=== PATIENT | male | born 1955 | race Caucasian/White ===

== ENCOUNTER 2024-11-27 09:52 | Outpatient (CLI) | payer MEDICARE, SELFPAY ==
--- OUTSIDE RECORDS SUMMARY | 2024-11-27 11:24 | XMS_ITS | Clinical Summary ---
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 Full Code Date Activated Date Inactivated Comments 06/08/2022 12:26 PM 06/09/2022 4:18 PM * Full Code Date Activated Date Inactivated Comments 04/17/2020 1:08 PM 04/18/2020 11:33 PM Care Teams Television Producer Relationship Specialty Start Date End Date Buster Hurst MD PCP - General 05/28/13 Jan Williamson MD [address] [place] [address] DR SAMAN[address]GO [address] [address] Surgeon Orthopedic Surgery 06/17/23
--- OUTSIDE RECORDS SUMMARY | 2024-11-27 11:24 | XMS_ITS | Referral Summary ---
Author Organization [facility] Medical Office Building A Address [address] [place] [id number] Care Team Providers Care Line Prep Cook Name Role Phone Buster Hurst MD Primary Care Provider Jan Williamson MD Unavailable [phone] Encounters Date Type Department Care Team Description 10/02/2024 Orders Only [facility] Primary Care at [address] [place] [phone] Buster Hurst MD Bilateral acute serous otitis media, recurrence not specified (Primary Dx) 10/01/2024 Telephone [facility] Medical [facility] Primary Care at [address] [place] [phone] Buster Hurst MD Referral Request 09/13/2024 11:15 AM MANAGER MANAGED BACKUP SERVICES Office Visit [facility] Medical [facility] Primary Care at [address] [phone] Buster Hurst MD Bilateral acute serous otitis media, recurrence not specified (Primary Dx); BMI 26.0-26.9,adult from Last 3 Months Allergies Active Allergy Reactions Criticality Noted Date [...] (11/26/2022): Added automatically from request for surgery [id number] History of 2019 novel coronavirus disease (COVID -19) 07/12/2022 History of bilateral reverse prosthetic total shoulder arthroplasty 07/12/2022 Rotator cuff arthropathy, left 06/08/2022 Rotator cuff arthropathy, right 05/24/2022 Overview (05/24/2022): Added automatically from request for surgery [id number] Biceps tendonitis, right 05/24/2022 Overview (05/24/2022): Added automatically from request for surgery [id number] Derangement of right knee 11/26/2020 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 Will go ahead and complete head CT with and without contrast this to evaluate for any acute concerns which could be causing his persistent headaches. And certainly will follow-up with his new neurosurgeon, Dr. Stroud at [facility] as scheduled in a month Assessment & Plan (10/11/2017 9:09 AM MANAGER MANAGED BACKUP SERVICES): Certainly were going to look into other [...] (04/04/2020): Added automatically from request for surgery [id number] Biceps tendonitis on left 04/04/2020 Overview (04/04/2020): Added automatically from request for surgery [id number] Aftercare following surgery 11/17/2018 06/28/2019 Abscess of bursa of left knee 11/08/2018 06/28/2019 Assessment & Plan (11/09/2018 2:29 PM MANAGER MANAGED BACKUP SERVICES): After initial evaluation, concern for joint involvement [...] 10/02/2018 Assessment & Plan (10/11/2017 9:08 AM MANAGER MANAGED BACKUP SERVICES): Dizziness is more likely due to his [...] 04/13/2018 Assessment & Plan (10/11/2017 9:09 AM MANAGER MANAGED BACKUP SERVICES): Checking into anemia status and will follow [...] as needed or for next wellness visit. Immunizations Immunization Administration Dates Next Due Influenza, Quadrivalent, Pauline l Culture-based MDCK, Antibiotic Free, Intramuscular 06/29/2020 Influenza, Quadrivalent, Hig h Dose, Preservative Free, Intrr 06/09/2022 Influenza, Quadrivalent, Spl it, Preservative Free, Intramuscular 06/17/2021,06/15/2019,05/30/2018 Influenza, Trivalent, Adjuva nted, Intramuscular 06/20/2024 Influenza, Trivalent, IM (MDV) 07/05/2012 Influenza, Unspecified 06/28/2023,06/15/2019 Pfizer SARS-CoV-2 Monovalent Vaccination (12+ Yrs) PURPLE 11/25/2020,11/04/2020 Pneumococcal Conjugate Pcv20 07/12/2022 ZOSTER Recombinant 08/31/2019,07/01/2019 Social History Tobacco Use Types Packs/Day Years Used Date Smoking Tobacco: Former Cigarettes 0.3 19 1 974 - 1992 Passive Smoke Exposure: Past Smokeless [...] on file Legal Sex Male 8:34 AM MANAGER MANAGED BACKUP SERVICES Gender Identity Male 10/31/2020 12:53 PM MANAGER MANAGED BACKUP SERVICES Sexual Orientation Straight 10/31/2020 12 :53 PM MANAGER MANAGED BACKUP SERVICES Last Filed Vital Signs Vital Sign Reading Time Taken Comments Blood Pressure 126/78 09/13/2024 10:57 AM MANAGER MANAGED BACKUP SERVICES Pulse 84 09/13/2024 10:57 AM MANAGER MANAGED BACKUP SERVICES Temperature 36.2 C (97.1 F) 09/13/2024 10:57 AM MANAGER MANAGED BACKUP SERVICES Respiratory Rate 16 09/13/2024 10:57 AM MANAGER MANAGED BACKUP SERVICES Oxygen Saturation 98% 09/13/2024 10:57 AM MANAGER MANAGED BACKUP SERVICES Inhaled Oxygen Concentration - - Weight 76.7 kg (169 lb) 09/13/2024 10:57 AM MANAGER MANAGED BACKUP SERVICES Height 170.2 cm (5' 7 ) 09/13/2024 10:57 AM MANAGER MANAGED BACKUP SERVICES Body Mass Index 26.47 09/13/2024 10:57 AM MANAGER MANAGED BACKUP SERVICES Plan of Treatment Not on file Medical Devices Implanted Type Area Mint Wafer Depositor Device Identifier Shelf Expiration Date Model / Serial / Lot Exactech 320-15-05 Equinoxe Lock Reverse Shoulder Glenosphere Screw Bone - [id number] - [id number] Implanted:Qty: 1 on 04/17/2020 by Jan Williamson MD at [facility] Screw Left: Shoulder Exactech 12/31/2024 320-15-05 / [id number] / Exactech 320-20-34 Equinoxe 4.5mm 34mm Kit Compression Lock Cap Reverse Shoulder - [id number] - [id number] Implanted:Qty: 1 on 04/17/2020 by Jan Williamson MD at [facility] Screw Left: Shoulder Exactech 01/13/2025 320-20-34 / [id number] / Hardware N/A: Neck Component 40mm Glenoid Glenosphere Rvrs Shoulder - [id number] - [id number] Implanted:Qty: 1 on 04/17/2020 by Jan Williamson MD at [facility] Left: Shoulder Exactech 03/03/2030 320-31-40 / [id number] / Exactech 320-35-01 Unassigned Unassigned - [id number] - [id number] Implanted:Qty: 1 on 04/17/2020 by Jan Williamson MD at [facility] Left: Shoulder Exactech 11/12/2029 320-35-01 / [id number] / Exactech 320-20-00 Reverse Torque Define Shoulder Kit Screw - [id number] - [id number] Implanted:Qty: 1 on 04/17/2020 by Jan Williamson MD at [facility] Left: Shoulder Exactech 01/20/2025 320-20-00 / [id number] / Exactech 320-20-26 Equinoxe 4.5mm 26mm Kit Compression Lock Cap Reverse Shoulder - [id number] - [id number] Implanted:Qty: 1 on 04/17/2020 by Jan Williamson MD at [facility] Left: Shoulder Exactech 05/21/2024 320-20-26 / [id number] / Exactech 320-10-00 Equinoxe Reverse Shoulder +0mm Tray Humeral Adapter - [id number] - [id number] Implanted:Qty: 1 on 04/17/2020 by Jan Williamson MD at [facility] Left: Shoulder Exactech 10/23/2029 320-10-00 / [id number] / Stem Humrl 12mm Press Fit Equinoxe Shldr Strl - [id number] - [id number] Implanted:Qty: 1 on 04/17/2020 by Jan Williamson MD at [facility] Left: Shoulder Exactech 01/14/2030 300-09-16 / [id number] / Liner 40mm 0 Humeral Rvrs Constrained Equinoxe Shoulder - [id number] - [id number] Implanted:Qty: 1 on 04/17/2020 by Jan Williamson MD at [facility] Left: Shoulder Exactech 01/21/2025 320-40-00 / [id number] / Exactech Equinoxe Small Reverse Superior Augment Shoulder 10d Plate 320-35-02 - [id number] - [id number] Implanted:Qty: 1 on 06/08/2022 by Jan Williamson MD at [facility] Right: Shoulder Exactech 04/15/2032 320-35-02 / [id number] / Exactech Equinoxe 40mm 24.3mm Small Reverse Shoulder Sphere Glenoid 320-31-40 - [id number] - [id number] Implanted:Qty: 1 on 06/08/2022 by Jan Williamson MD at [facility] Right: Shoulder Exactech 04/13/2032 320-31-40 / [id number] / Exactech Equinoxe 4.5mm 38mm Kit Compression Lock Cap Reverse Shoulder 320-20-38 - [id number] - [id number] Implanted:Qty: 1 on 06/08/2022 by Jan Williamson MD at [facility] Right: Shoulder Exactech 01/19/2027 320-20-38 / [id number] / Exactech Equinoxe 4.5mm 38mm Kit Compression Lock Cap Reverse Shoulder 320-20-38 - [id number] - [id number] Implanted:Qty: 1 on 06/08/2022 by Jan Williamson MD at [facility] Right: Shoulder Exactech 04/14/2027 320-20-38 / [id number] / Exactech Stem 70mm 11mm Humeral Equinoxe Shoulder Sterile 300-30-11 - [id number] - [id number] Implanted:Qty: 1 on 06/08/2022 by Jan Williamson MD at [facility] Right: Shoulder Exactech 03/17/2031 300-30-11 / [id number] / Exactech Equinoxe Reverse Shoulder +0mm Tray Humeral Adapter 320-10-00 - [id number] - [id number] Implanted:Qty: 1 on 06/08/2022 by Jan Williamson MD at [facility] Right: Shoulder Exactech 05/18/2032 320-10-00 / [id number] / Exactech Equinoxe 40mm Small Reverse Shoulder +0mm Liner Humeral 320-40-00 - [id number] - [id number] Implanted:Qty: 1 on 06/08/2022 by Jan Williamson MD at [facility] Right: Shoulder Exactech [id number] 03/17/2027 320-40-00 / [id number] / Exactech Equinoxe Lock Reverse Shoulder Glenosphere Screw Bone 320-15-05 - [id number] - [id number] Implanted:Qty: 1 on 06/08/2022 by Jan Williamson MD at [facility] Right: Shoulder Exactech 04/20/2027 320-15-05 / [id number] / Exactech Reverse Torque Define Shoulder Kit Screw 320-20- - [id number] - [id number] Implanted:Qty: 1 on 06/08/2022 by Jan Williamson MD at [facility] Right: Shoulder Exactech 04/20/2027 320-20- / [id number] / Plates-10/28/2023 Implanted:2023 (Quantity not on file) [...] us Buster Hurst MD LAB BLOOD ORDERABLES [facility] Result DEE PAREDES ([place]) 1 [facility] Department [place] [address] * COLONOSCOPY (01/25/2023 8:03 AM CDT) Anatomical Region Laterality Modality Other Narrative Procedure Note Jarek Paul MD - 01/25/2023 8:03 AM CDT [facility] Patient Name: Clifford Singh Procedure Date: 01/25/2023 8:03 AM Date of : 1955 Admit Type: Outpatient Age: 67 Gender: Male Attending MD: Jarek Paul M.D. Room: [facility] RO[facility] 1 Note Status: Finalized Patient [...] under direct vision. The Pediatric Colonoscope PCF-H190L [id number] was introducedthrough the anus and advanced to [...] 8:03 AM Procedure Code(s): --- Professional --- 13920, Colonoscopy, flexible; with removal of tumor(s), polyp(s), or other lesion(s) by snare technique 99190, 59, Colonoscopy, flexible; with biopsy, single or multiple Diagnosis Code(s): --- Professional --- Z12.11, Encounter for screening for malignant neoplasm of colon K64.8, Other hemorrhoids D12.3, Benign neoplasm of transverse colon (hepatic flexure orsplenic flexure) D12.5, Benign neoplasm of sigmoid colon CPT copyright 2020 [employer]. All rights reserved. The codes documented in this report are preliminary and upon stadium manager reviewmay be revised to meet current compliance requirements. Recognized by the [employer] for promoting quality in endoscopy us Jarek Paul MD ENDOSCOPY PROCEDURES Final Result * Hepatitis C Antibody Reflex Hepatitis C RNA Quantitative PCR (06/07/2017 7:04 AM CDT) Hep C Ab Negative Negative [facility] Blood specimen (specimen) 06/07/2017 7:04 AM CDT 06/07/2017 12:51 PM CDT Buster Hurst MD LAB MICROBIOLOGY - G[place] [id number] [address] Department [place] [address] from Last 3 Months or Most Recently Relevant to Health Maintenance Insurance MEDICARE [facility] CHOICE PLUS MEDICARE [facility] MEDICARE BLUE CROSS MEDICARE SUPPLEMENT Advance Directives For more information, please contact: [phone] Documents on File Type Date Recorded Patient Freight Car Cleaner Delta System Expl anation ADVANCE DIRECTIVE 07/15/2023 6:22 AM Elissa r of Monument Installer-Medical Power of Monument Installer 07/15/2023 5:39 AM * Full Code (Latest [...] 1:08 PM 04/18/2020 11:33 PM Care Teams Line Prep Cook Relationship Specialty Start Date End Date Buster Hurst MD PCP - General 05/28/13 Jan Williamson MD [address] [place] [address] DR SAMAN[address] [address] Surgeon Orthopedic Surgery 06/17/23
--- OUTSIDE RECORDS SUMMARY | 2024-11-27 11:24 | XMS_ITS ---
Author Organization [facility] Address [address] [place] [address] Phone Care Team Providers Care Food Cashier Name Role Phone JASE VIRK, JONO Unavailable [phone] Plan of Treatment Findings Encounter Date Continue current medication COVID SICK V ISIT- ESTABLISHED PATIENT with MARINA TRUONG FAST [employer]OD FRY COOK-C 05/19/2021 Last Documented On 1 3:40PM ; [facility] The options include close observation CO VID SICK VISIT- ESTABLISHED PATIENT with MARINA TRUONG FAST FOOD FRY COOK-C 05/19/2021 Last Documented On 1 3:40PM ; [facility] Assessments Includes: Assessments for all patient encounters Findings Encounter Date COVID-19 infection COVID SICK VISIT- ES TABLISHED PATIENT with MARINA TRUONG FAST FOOD FRY COOK-C 05/19/2021 Last Documented On 1 3:40PM ; [facility] Medical Equipment - Implanted Devices Includes: Current and historical Devices No Medical Equipment Recorded Medications Administered Includes: Administered Medications in patient's chart No Administered Medications Recorded Results Includes: Results from 11/28/2023 through 11/27/2024 No Results Recorded For Specified Dates History of Present Illness History of Present Illness not supported for this document type No History of Present Illness Recorded Social History Description Last Updated No travel 05/19/2021 Last Documented On 1 3:40PM ; [facility] Tobacco non-user 05/19/2021 Last Documented On 1 3:40PM ; [facility] Smoking Status Unknown Medical History Includes: Medical History in patient's chart Description Last Updated Exposure to a contagious disease 021 Last Documented On 1 3:40PM ; [facility] Contact with and (Suspected) exposure to COVID-19 05/19/2021 Last Documented On 1 3:40PM ; [facility] No fall 05/19/2021 Last Documented On 3:40PM ; [facility] Family History Includes: Family History in patient's chart No Family History Recorded Review of Systems Review of Systems not supported for this document type No Review of Systems Recorded Mental Status No Mental Status Recorded Functional Status No Functional Status Recorded Physical Exam Physical Exam not supported for this document type No Physical Exam Recorded Insurance Includes: Active Insurance Policies Plan Name Member ID Group # Subscriber Relationship Effect kurt Dates 1 - MEDICARE PART A CLAIMS/NGS [id number] [facility] - [facility] [id number] [facility] Clinical Notes Includes: Signed Clinical Notes starting from 09/24/2022 No Clinical Notes Recorded
--- OUTSIDE RECORDS SUMMARY | 2024-11-27 11:24 | XMS_ITS | Clinical Summary ---
Author Organization [facility] Address [address] [place] [address] Care Team Providers Care Garage Laborer Name Role Phone Buster Hurst MD Primary Care Provider Source Comments [facility],non-owned Affiliates and Associated Physician Practices is amultiple site organization consisting of ambulatory clinics and hospital sitesin [place], [place] and [place]. This disclosure is being madepursuant to the Care Everywhere program and may not contain all information available regarding this patient. Last updated 18.[facility] Allergies No known active allergies Medications * Be aware that medications may not be up to date on this document. Alwaysverify current medications with the patient. Medication Sig Dispensed Refills Start Date End Date Status atorvastatin (LIPITOR) 40 MG tablet Take 40 mg by mouth at bedtime Active DULoxetine (CYMBALTA) 60 MG capsule Take 60 mg by mouth once daily Active lamoTRIgine (LAMICTAL) 200 MG tablet Take 200 mg by mouth 2 times daily Active escitalopram (LEXAPRO) 20 MG tablet Take 20 mg by mouth once daily Active oxyCODONE-acetamino phen (PERCOCET) 5-325 MG tablet Take 1 tablet by mouth every 4 hours as needed Active vitamin E (TOCOPHERYL) 400 UNIT tablet Take by mouth once daily Active ibuprofen (MOTRIN) 200 MG tablet Take by mouth every 6 hours as needed Active acetaminophen (TYLENOL) 500 MG tablet Take 500 mg by mouth every 4 hours as needed Maximum allowable Acetaminophen amount = 4 Grams (4000 mg) / 24 hours. Active tiZANidine (ZANAFLEX) 2 MG tablet Take 2 mg by mouth every 8 hours as needed Active Active Problems No known active problems Immunizations Name Administration Dates Next Due INFLUENZA VACCINE, QUADR. (F LUZONE; FLULAVAL; FLUARIX; AFLURIA QUADRIVALENT; 6MO+), 0.5 ML (IIV4) 05/31/2018 Family History Medical History Relation Name Comments Hypertension Father Depression Mother Relation Name Status Comments Father Mother Social History Tobacco Use Types Packs/Day Years Used Date Smoking Tobacco: Former Cigarettes Smokeless Tobacco: Never Tobacco Cessation:Counseling Given: No Alcohol Use Standard Drinks/Week Comments Yes 10 (1 standard drink = 0.6 oz pu re alcohol) WEEK Sex and Gender Information Value Date Recorded Sex Assigned at Not on file Gender Identity Not on file Sexual Orientation Not on file Last Filed Vital Signs Vital Sign Reading Time Taken Comments Blood Pressure 113/73 10/16/2018 8:55 AM DIESEL DINKEY ENGINEER Pulse 70 10/16/2018 8:55 AM DIESEL DINKEY ENGINEER Temperature - - Respiratory Rate - - Oxygen Saturation - - Inhaled Oxygen Concentration - - Weight 72.6 kg (160 lb) 10/16/2018 8:55 AM DIESEL DINKEY ENGINEER Height 171.5 cm (5' 7.5 ) 10/16/2018 8:55 AM DIESEL DINKEY ENGINEER Body Mass Index 24.69 10/16/2018 8:55 AM DIESEL DINKEY ENGINEER Plan of Treatment Health Maintenance Due Date Last Done Comments COLOGUARD (AGES 45-75) - COLON CA SCREENING [address] COLONOGRAPHY - COLON CA SCREENING 1955 FIT - COLON CA SCREENING 1955 FLEX SIG - COLON CA SCREENING 1955 HEPATITIS C SCREENING 05/21/1975 DTAP/TDAP/TD VACCINES (1 - Tdap) 1976 PNEUMOCOCCAL VACCINE 50+ (1 of 1 - PCV) 2007 ZOSTER VACCINE (1 of 2) 2007 AAA SCREENING 2022 COVID-19 VACCINE (3 - 2023- season) 2024 11/25/2020, 11/04/2020 INFLUENZA VACCINE (#1) 2024 , 06/29/2020, 06/15/2019, Additional history exists DEPRESSION SCREENING 09/05/2024 Respiratory Syncytial Virus (RSV) Vaccine Pt: or over 60 yrs (1 - 1-dose 75+ series) 2032 COLONOSCOPY - COLON CA SCREENING 01/25/2033 01/25/2023 Colorectal Cancer Screening 01/25/2033 HEPATITIS B VACCINE Aged Out No longe r eligible based on patient's age to complete this topic HIB VACCINE Aged Out No longer eligi ble based on patient's age to complete this topic HPV VACCINE Aged Out No longer eligi ble based on patient's age to complete this topic MENINGOCOCCAL (Group B) VACCINE SHARED DECISION-MAKING Aged Out No longer eligible based on patient's age to complete this topic MENINGOCOCCAL GROUPS A/C/Y/W VACCINE Aged Out No longer eligible based on patient's age to complete this topic Care Teams Garage Laborer Relationship Specialty Start Date End Date Buster Hurst MD [address] [facility] [address] [place] [phone] PCP - General Internal Medicine 03/30/18
--- OUTSIDE RECORDS SUMMARY | 2024-11-27 11:24 | XMS_ITS | Clinical Summary ---
Author Organization [facility] Address [address] [place] [address] Phone Care Team Providers Care Picker Packer Name Role Phone Buster Hurst MD Primary Care Provider [phone] Allergies Active Allergy Reactions Criticality Noted Date Comments Cyclobenzaprine Confusion High 03/10/2023 manic Medications atorvastatin (LIPITOR) 40 mg tablet Take 1 Tablet by mouth daily at bedtime. 12/13/2022 Active mirtazapine (REMERON) 15 mg tablet Take 1 Tablet (15 mg) by mouth daily at bedtime. 30 Tablet 1 03/23/2023 12:46 PM CDT 03/23/2023 Active escitalopram oxalate (LEXAPRO) 20 mg tablet Take 20 mg by mouth daily. 04/05/2023 Active doxycycline monohydrate 100 mg Tablet Take 100 mg by mouth daily. 04/05/2023 Active Cholecalciferol, Vitamin D3, 50 mcg (2,000 unit) Capsule Take 2,000 Int'l Units by mouth daily. Active acetaminophen (TYLENOL) 500 mg tablet Take 500 mg by mouth. 11/19/2023 Active ibuprofen (MOTRIN) 200 mg tablet Take 200 mg by mouth every 6 hours as needed for Pain, Mild. Active Active Problems Problem Noted Date Diagnosed Date Hypoalbuminemia 09/23/2023 Hypoproteinemia 09/23/2023 Essential hypertension 09/23/2023 Anemia of chronic disease 09/23/2023 Generalized anxiety disorder 09/23/2023 Depression 09/23/2023 Primary insomnia 09/23/2023 Acute pain 09/22/2023 Pseudarthrosis after fusion or arthrodesis 09/20 Postoperative infection 03/22/2023 Delirium due to another medi doug condition, acute, hyperactive 03/12/2023 Acute respiratory failure with hypoxia Closed dislocation of fourth cervical vertebra 0 03/08/2023 Protein-calorie malnutrition, severe 03/07/2023 Acute metabolic encephalopathy 03/07/2023 FLEX (acute kidney injury) 03/05/2023 High anion gap metabolic acidosis 03/05/2023 Non-traumatic rhabdomyolysis 03/05/2023 Tia 03/03/2023 Recurrent major depressive disorder, in remissio n 03/03/2023 Leukocytosis (leucocytosis) 03/03/2023 Thrombocytosis 03/03/2023 HLD (hyperlipidemia) 03/03/2023 Anxiety 02/19/2023 Benign prostatic hyperplasia 02/19/2023 Kyphosis of cervical region 02/14/2023 S/P cervical spinal fusion 02/14/2023 Complications due to interna l orthopedic device, implant, and graft 02/14/2023 Encounters Date Type Department Care Team Description 11/12/2024 10:50 AM CDT Ancillary Procedure [facility] [address] [facility] [address] [place] [address] Orlin Wen MD S/P cervical spinal fusion 11/12/2024 10:45 AM CDT Office Visit [facility] Neuro[facility] [address] [facility] [address] [facility] [address] [place] [address] Orlin Wen MD S/P cervical spinal fusion (Primary Dx) 10/24/2024 External Device Data ST[facility] ABSTRACTION Provider, Abstract 09/27/2024 External Device Data STL ABSTRACTION Provider, Abstract from Last 3 Months Family History Medical History Relation Name Comments Hypertension Brother Stroke Father Relation Name Status Comments Brother Alive Father Mother Sister 1 Alive Sister 2 Alive Social History Tobacco Use Types Packs/Day Years Used Date Smoking Tobacco: Former Cigarettes Q uit: 1983 Smokeless Tobacco: Never Tobacco Cessation:Counseling Given: Not Answered Alcohol Use Standard Drinks/Week Comments Yes 0 (1 standard drink = 0.6 oz pur e alcohol) ocassionally Feeling Safe Answer Date Recorded Are you in a relationship wi th someone who hurts you emotionally and/or physically? No 09/21/2023 Food Insecurity Answer Date Recorded Social/Environmental Concerns No concerns Transportation Needs Answer Date Record ed Social/Environmental Concerns No concerns Housing Stability Answer Date Recorded Social/Environmental Concerns No concerns Utility Needs Answer Date Recorded Social/Environmental Concerns No concerns Sex and Gender Information Value Date Recorded Sex Assigned at Not on file Legal Sex Male 3:03 PM CDT Gender Identity Not on file Sexual Orientation Not on file Last Filed Vital Signs Vital Sign Reading Time Taken Comments Blood Pressure 125/78 11/12/2024 10:41 AM CDT Pulse 64 11/12/2024 10:41 AM CDT Temperature 36.6 C (97.9 F) 11/12/2024 10:41 AM CDT Respiratory Rate 16 11/12/2024 10:41 AM CDT Oxygen Saturation 96% 11/12/2024 10:41 AM CDT Inhaled Oxygen Concentration - - Weight 75.3 kg (166 lb) 11/12/2024 10:41 AM CDT Height 168.9 cm (5' 6.5 ) 11/12/2024 10:41 AM CD T Body Mass Index 26.39 11/12/2024 10:41 AM CDT Plan of Treatment Upcoming Encounters Date Type Department Care Team (Late st Contact Info) Description 11/11/2025 11:00 AM CDT Office Visit [facility] [address] [facility] [facility] [address] [place] [phone] Orlin Wen MD [address] [address] Health Maintenance Due Date Last Done Comments DTAP/TDAP/TD VACCINES (1 - Tdap) 1976 FIT-DNA Q 3 years 2002 FIT/FOBT Q 1 year 2002 Flex Sig/CT Colonography Q 5 years 2002 Abdominal Aortic Aneurysm (A AA) Screening 2022 COVID-19 Vaccine (3 - 2023-2 5 season) 2024 11/25/2020, 11/04/2020 Pre-Diabetes and Diabetes Screening 09/22/2026 09/22/2023 RSV VACCINE (60+ or ) (1 - 1-dose 75+ series) 2032 COLORECTAL SCREENING 01/25/2033 01/25/2023, 01/26/20 Colorectal Cancer Screening 01/25/2033 ZOSTER VACCINE Completed 08/31/2019, 07/01/2019 PNEUMOCOCCAL VACCINE 50+ YEARS Completed 07/12/2022 INFLUENZA VACCINE Completed 06/20/2024, , 06/08/2022, Additional history exists Medical Devices Implanted Type Area Research Agricultural Engineer Device Identifier Shelf Expiration Date Model / Serial / Lot Infuse Protein Kit Med [id number] - [id number] Implanted:Qty: 1 on 09/21/2023 by Orlin Wen MD at [facility] Biological N/A: Spine Cervical Posterior [employer] SO[employer]OR [employer]ANEK 01/03/2025 [id number] / / [id number] Hemostatic Surgiflo 8ml W/ Thrombin 2994 - [id number] Implanted:Qty: 1 on 02/17/2023 by Orlin Wen MD at [facility] Hemostatic N/A: Neck J&J- [employer] 01/03/2024 2994 / / [id number] Hemostatic Surgiflo 8ml W/ Thrombin 2994 - [id number] Implanted:Qty: 1 on 02/17/2023 by Orlin Wen MD at [facility] Hemostatic N/A: Neck J&J- [employer] 05/05/2024 2994 / / [id number] Hemostatic Surgiflo 8ml W/ Thrombin 2994 - [id number] Implanted:Qty: 1 on 02/17/2023 by Orlin Wen MD at [facility] Hemostatic N/A: Neck J&J- [employer] 01/03/2024 2994 / / [id number] Hemostatic Surgiflo 8ml W/ Thrombin 2994 - Sna Implanted:Qty: 1 on 03/10/2023 by Orlin Wen MD at [facility] Hemostatic N/A: Spine Cervical Posterior J[employer]J- [employer] 05/05/2024 2994 / NA / [id number] Mirragen Adv Wound Matrix Mesh 2.5in 15cm Msg-[id number] - [id number] Implanted:Qty: 1 on 09/21/2023 by Orlin Wen MD at [facility] Mesh N/A: Spine Cervical Posterior [employer] 06/28/2027 [id number] / / [id number] Keegan Implanted:Qty: 1 on 09/21/2023 by Orlin Wen MD at [facility] Other N/A: Spine Cervical Posterior [employer] [id number] / / [id number] Description:1X ADD JM Screw Screw Neck Screw Infinity 4.5x32mm Mas [id number] - [id number] Implanted:Qty: 1 on 02/17/2023 by Orlin Wen MD at [facility] Screw N/A: Neck [employer]ANEK [id number] / / Description:Load #: [id number] Sterilized: February 15, 2023 Screw Infinity 3.5x22mm Mas [id number] - [id number] Implanted:Qty: 1 on 02/17/2023 by Orlin Wen MD at [facility] Screw N/A: Neck [employer]ANEK [id number] / / Description:Load #: [id number] Sterilized: January 31, 2023 Screw Infinity 4.5x24mm Mas [id number] - [id number] Implanted:Qty: 1 on 02/17/2023 by Orlin Wen MD at [facility] Screw N/A: Neck [employer] [id number] / / Description:Load #: [id number] Sterilized: February 15, 2023 Screw Infinity 3.5x24mm Mas [id number] - [id number] Implanted:Qty: 2 on 02/17/2023 by Orlin Wen MD at [facility] Screw N/A: Neck [employer]ANEK [id number] / / Description:Load #: [id number] Sterilized: January 31, 2023 Set Screw Infinity Oc M6 [id number] - [id number] Implanted:Qty: 10 on 09/21/2023 by Orlin Wen MD at [facility] Screw N/A: Spine Cervical Posterior [employer] SOF[employer]ANEK [id number] / / Description:[place] [address]/50 3 Sterilization Date Bone Chips Canc 30ml [id number] - [id number] Implanted:Qty: 1 on 09/21/2023 by Orlin Wen MD at [facility] Tissue N/A: Spine Cervical Posterior [employer] 03/17/2028 [id number] / [id number] / Description:[id number] Reverse Replacement Bilateral: Shoulder Description:titanium Explanted Type Area Research Agricultural Engineer Device Identifier Shelf Expiration Date Model / Serial / Lot Keegan Infinity 3.5x50mm Pre-Cut [id number] - [id number] Implanted:Qty : 2 on 02/17/2023 by Orlin Wen MD at [facility] Explanted:Qty : 2 on 03/10/2023 by Orlin Wen MD at [facility] Keegan N/A: Neck [employer] SOFAMOR DANEK [id number] / / Description:Load #: [id number] Sterilized: January 29, 2023 Keegan Std 3.4q915tv [id number] - Sna Implanted:Qty : 2 on 03/10/2023 by Orlin Wen MD at [facility] Explanted:Qty : 2 on 09/21/2023 by Orlin Wen MD at [facility] Keegan N/A: Spine Cervical Posterior [employer] SOFAMOR DANEK [id number] / NA / NA Description:load # [id number] sterilization date - march 02, 2023 Set Screw Infinity Oc M6 [id number] - [id number] Implanted:Qty : 5 on 02/17/2023 by Orlin Wen MD at [facility] Explanted:Qty : 5 on 03/10/2023 by Orlin Wen MD at [facility] Screw N/A: Neck [employer] SOFAMOR DANEK [id number] / / Description:Load #: [id number] Sterilized: January 31, 2023 Screw Infinity 3.5x26mm Ma [id number] - [id number] Implanted:Qty : 3 on 02/17/2023 by Orlin Wen MD at [facility] Explanted:Qty : 2 on 03/10/2023 by Orlin Wen MD at [facility] Explanted:Qty : 1 on 03/10/2023 by Orlin Wen MD at [facility] Screw N/A: Neck [employer] SOF[employer]OR [employer]ANEK [id number] / / Description:Load #: [id number] Sterilized: January 31, 2023 Partial Thread Mas 4 X 30 Mm Screw Implanted:Qty : 1 on 02/17/2023 by Orlin Wen MD at [facility] Explanted:Qty : 1 on 09/21/2023 by Orlin Wen MD at [facility] Screw N/A: Neck [employer] SOFAMOR [employer]ANEK [id number] / / Description:1X ADD LG Set Screw Infinity Oc M6 [id number] - Sna Implanted:Qty : 14 on 03/10/2023 by Orlin Wen MD at [facility] Explanted:Qty : 14 on 09/21/2023 by Orlin Wen MD at [facility] Screw N/A: Spine Cervical Posterior [employer] SOFAMOR [employer]ANEK [id number] / NA / NA Description:load # [id number] sterilization date - march 02, 2023 Screw Infinity 4.5x34mm Mas [id number] - [id number] Implanted:Qty : 2 on 02/17/2023 by Orlin Wen MD at [facility] Explanted:Qty : 2 on 09/21/2023 by Orlin Wen MD at [facility] Screw N/A: Neck [employer] SOFAMOR [employer]ANEK [id number] / / Description:Load #: [id number] Sterilized: February 15, 2023 Screw Infinity 4.5x30mm Mas [id number] - [id number] Implanted:Qty : 5 on 02/17/2023 by Orlin Wen MD at [facility] Explanted:Qty : 5 on 09/21/2023 by Orlin Wen MD at [facility] Screw N/A: Neck [employer] SOF[employer]ANEK [id number] / / Description:Load #: [id number] Sterilized: February 15, 2023 Procedures Procedure Name Priority Date/Time Associated Diagnosis Comments XR CERVICAL SPINE 2 OR 3 VIEWS Routine 11/12/2024 10:58 AM CDT S/P cervical spinal fusion HEMOGLOBIN A1C Routine 09/22/2023 3:11 AM MOBILE HOME SET UP PERSON from Last 3 Months or Most Recently Relevant to Health Maintenance Results * XR CERVICAL SPINE 2 OR 3 VIEWS (11/12/2024 10:58 AM CDT) Anatomical Region Laterality Modality Spine Computed Radiogr aphy Narrative 11/20/2024 5:46 PM CDT AP/LAT Cervical radiographs of diagnostic quality reviewed demonstrating continued stable implants and alignment without evidence of loosening, migration, or subsidence. There has been no development of intercurrent craniocervical instability. There are no abnormal lucencies or densities observed in the visualized vertebrae, clavicles, ribs, or skull. Lung quintero are clear. Soft tissues remain unremarkable. us Orlin Wen MD DIAGNOSTIC IMAGING ORDERABLES Final Result * (ABNORMAL) HEMOGLOBIN A1C (09/22/2023 3:11 AM MOBILE HOME SET UP PERSON) HEMOGLOBIN A1C 6.0(H) <=5.6 % 09/22/2023 9:29 PM MOBILE HOME SET UP PERSON [facility] EST. AVG GLUCOSE, A1C 126 mg/dL 09/22/2023 9:29 PM MOBILE HOME SET UP PERSON [facility] Blood Venipuncture / Unknown 09/22/2023 3:11 AM MOBILE HOME SET UP PERSON 09/22/2023 3:20 AM MOBILE HOME SET UP PERSON Narrative [facility] - 09/22/2023 9:29 PM MOBILE HOME SET UP PERSON HGB A1C INTERPRETATION NORMAL: <5.7% PRE-DIABETES: 5.7 - 6.4% DIABETES: 6.5% OR GREATER us Rony Delgado DO CHEMISTRY ORDERABLE S Final Result [facility] CLIA# [id number] [place] [address] from Last 3 Months or Most Recently Relevant to Health Maintenance Insurance MEDICARE PART A AND B BCBS SUPP RX [facility] Medicare Part D RX [employer] PLANS (INTERNAL) [facility] RX [employer] Medicare Part D Advance Directives For more information, please contact: [phone] Documents on File Type Date Recorded Patient Mill Tender Warm Up Expl anation Advance Directive POA 02/09/2023 8:32 AM Ad oh Directive POA Advance Directive Living Will 02/09/2023 8:31 AM Advance Directive Living Will * Full Code (Latest Code Status on File) Date Activated Date Inactivated Comments 09/21/2023 8:40 PM 09/24/2023 4:04 PM * Full Code Date Activated Date Inactivated Comments 03/03/2023 6:47 PM 03/23/2023 3:37 PM * Full Code Date Activated Date Inactivated Comments 02/17/2023 6:50 PM 02/21/2023 3:39 PM Care Teams Picker Packer Relationship Specialty Start Date End Date Buster Hurst MD [address] [place] [address] [address] [place] [phone] PCP - General Internal Medicine 12/21/12
--- OUTSIDE RECORDS SUMMARY | 2024-11-27 11:24 | XMS_ITS | Encounter Summary ---
Author Organization [facility] Address [address] [place] [address] Phone Care Team Providers Care Hydraulic Auto Jack Mechanic Name Role Phone Buster Hurst MD Primary Care Provider Kannan Man NP Unavailable [phone] Jan Williamson MD Unavailable [phone] Encounter Details Date Type Department Care Team (Late st Contact Info) Description 12/19/2017 Orders Only [facility] ProviderGino [place] [address] Social History Tobacco Use Types Packs/Day Years Used Date Smoking Tobacco: Former Smokeless Tobacco: Never Alcohol Use Standard Drinks/Week Comments Yes 0 (1 standard drink = 0.6 oz pur e alcohol) Sex and Gender Information Value Date Recorded Sex Assigned at Not on file Legal Sex Male 8:34 AM DIVISION CONTROLLER Gender Identity Male 10/31/2020 12:53 PM DIVISION CONTROLLER Sexual Orientation Straight 10/31/2020 12 :53 PM DIVISION CONTROLLER documented as of this encounter Plan of Treatment Not on file documented as of this encounter Procedures Procedure Name Priority Date/Time Associated Diagnosis Comments DISCHARGE LABORATORY CUMULATIVE REPORT 12/19/2017 12:00 AM CDT documented in this encounter Results * DISCHARGE LABORATORY CUMULATIVE REPORT (12/19/2017 12:00 AM CDT) Narrative 12/19/2017 12:00 AM CDT Ordered by an unspecified provider. us Historical Provider LAB BLOOD ORDERABLES Caitlin l Result documented in this encounter Visit Diagnoses Not on filedocumented in this encounter Additional Health Concerns Infection Onset Date Last Indicated Resolved Time COVID: Suspected 11/17/2021 11/17/2021 11/17/2021 12:10 PM CDT COVID: Suspected 08/17/2024 08/17/2024 08/17/2024 1:11 PM DIVISION CONTROLLER documented as of this encounter Care Teams Hydraulic Auto Jack Mechanic Relationship Specialty Start Date End Date Buster Hurst MD PCP - General 05/28/13 Kannan Man NP [address] [place] [address] Nurse Practitioner Nurse Practitioner 04/18/20 3 Jan Williamson MD [address] [place] [address] Surgeon Orthopedic Surgery 06/17/23 documented as of this encounter
--- OUTSIDE RECORDS SUMMARY | 2024-11-27 11:24 | XMS_ITS | Clinical Summary ---
Author Organization [facility] Address [address] [place] [address] Phone Care Team Providers Care Insurance Broker Name Role Phone LIONEL-MONICO VIRK, JONO Unavailable [phone] Reason for Visit and Chief Complaint The Chief Complaint is: pt is here for congestion, body aches, no taste or smell, sore throat, headache, cough x2days Plan of Treatment - The options include close observation - Last Documented On 05/19/2021 3:40PM ; [facility] - Continue current medication - Last Documented On 05/19/2021 3:40PM ; [facility] Rapid COVID testing performed today was positive. Patient advised that they will need to self-quarantine until further direction given per local health department. Call with development of additional or worsening symptoms. Go to ED for severe difficulty breathing or lethargy - Last Documented On 05/19/2021 3:40PM ; [facility] Pt demographics and test result faxed to patient's [facility]. - Last Documented On 05/19/2021 3:40PM ; [facility] Assessments Includes: Assessments from this encounter Findings - COVID-19 infection [COVID-19] - Last Documented On 05/19/2021 3:40PM ; [facility] Medical Equipment - Implanted Devices Includes: Current Devices No Medical Equipment Recorded Medications Administered Includes: Administered Medications from this encounter No Administered Medications Recorded Vital Signs Includes: Vital Signs from this encounter Vital Name 05/19/2021 03:17P Pulse Rate-Sitting (bpm) 87 Respiration Rate (breaths/min) 18 Temp-Oral (F) 98.6 Oxygen Saturation (%) 98 Last Documented: On 05/19/2021 3:17PM ; [facility] Results Includes: Results discussed during this encounter Rapid COVID Test [facility] Ordered by MARINA SUAREZ on 0 05/19/2021 Collected: Reported: 05/19/2021 15:29 Last Documented On 3:30PM ; [facility] Reviewed on 05/19/2021; All test results are final unless otherwise noted. Rapid COVId POSITIVE A (Abnormal) Last Documented On 1 3:29PM ; [facility] Int. QC Acceptable yes N (Normal) Last Documented On 3:29PM ; [facility] Lot # and Exp. Date [id number] 07/31/21 N (Normal) Last Documented On 1 3:29PM ; [facility] History of Present Illness Includes: History of Present Illness from this encounter BRENTON AVILA is a 65 year old male. - Allergy list reviewed - Problem list reviewed - Medication reconciliation performed - Feeling fine - Not feeling tired - Not feeling poorly (malaise) - No fever - No chills - Headache - No sinus pain - No swollen glands in the neck - No eye symptoms - Nasal discharge - Nasal passage blockage (stuffiness) - Sore throat - No ear symptoms - No postnasal drip - No chest pain or discomfort - No chest tightness or heavy pressure - No palpitations - Cough - No dyspnea - No wheezing - Normal appetite - Appetite not decreased - No nausea - No vomiting - No abdominal pain - No diarrhea - Myalgias - Anosmia - Unpleasantly altered taste - No skin symptoms Patient is a 65 year old male that presents to the respiratory clinic for exposure to COVID. His is positive. He c/o nasal congestion/drainage, bodyaches, mild cough, sore throat, headache and no/taste/smell x 2 days. Pt states past medical hx if depression and cholesterol. Social History Description Last Updated No travel 05/19/2021 Last Documented On 1 3:40PM ; [facility] Tobacco non-user 05/19/2021 Last Documented On 1 3:40PM ; [facility] Smoking Status Unknown Procedures and Surgical History Includes: Procedures from this encounter Procedures Code Diagnosis Performing Provider Service Location Service Date the options include antihistamines as needed per product instructions Last Documented On 1 3:39PM ; [facility] Pt to use OTC fever/pain product as need ed per product instruction.~ Last Documented On 1 3:39PM ; [facility] Pt to use OTC expectorant product as nee ded per product instruction.~ Last Documented On 1 3:39PM ; [facility] Pt to use OTC cough product as needed pe r product instruction.~ Last Documented On 1 3:39PM ; [facility] plan of care reviewed and agreed to Last Documented On 1 3:39PM ; [facility] use of tobacco assessment performed 1000F Last Documented On 1 3:17PM ; [facility] review of medications documented 1160F Last Documented On 1 3:17PM ; [facility] Medical History Includes: Medical History addressed during this encounter Description Last Updated Exposure to a contagious disease 021 Last Documented On 1 3:40PM ; [facility] Contact with and (Suspected) exposure to COVID-19 05/19/2021 Last Documented On 1 3:40PM ; [facility] No fall 05/19/2021 Last Documented On 1 3:40PM ; [facility] Family History Includes: Family History addressed during this encounter No Family History Recorded Review of Systems Includes: Review of Systems from this encounter Systemic: No systemic symptoms. Fatigue. No fever. How many days have you had cold sweats? (as sx). Head: Headache. Neck: No neck symptoms. Eyes: No eye symptoms. Otolaryngeal: Nasal discharge and sore throat. Cardiovascular: No cardiovascular symptoms. Pulmonary: Cough. Gastrointestinal: No gastrointestinal symptoms. Genitourinary: No genitourinary symptoms. Endocrine: No endocrine symptoms. Hematologic: No hematologic symptoms. Musculoskeletal: Muscle aches. Neurological: No neurological symptoms. Loss of taste or smell. Psychological: No psychological symptoms. Skin: No skin symptoms. Mental Status Includes: Mental Status from this encounter No Mental Status Recorded Functional Status Includes: Functional Status from this encounter No Functional Status Recorded Physical Exam Includes: Physical Exam from this encounter Encounters Encounter Provider Location Date Check-In Time Check-Out Time Diagnosis COVID SICK VISIT- ESTABLISHED PATIENT MARINA TRUONG SWING GRINDER-C [facility] 05/19/20 21 2:51PM 3:30PM Coronavirus Covid-19 Infection Insurance Includes: Active Insurance Policies Plan Name Member ID Group # Subscriber Relationship Effect kurt Dates 1 - MEDICARE PART A CLAIMS/NGS [id number] GEORGE Ro 2 - [facility] [id number] GEORGE Ro Clinical Notes Includes: Clinical Notes from this encounter No Clinical Notes Recorded
--- OUTSIDE RECORDS SUMMARY | 2024-11-27 11:24 | XMS_ITS | Encounter Summary ---
Author Organization [facility] Address [address] [place] [address] Care Team Providers Care Radiosonde Operator Name Role Phone Buster Hurst MD Primary Care Provider [phone] Reason for Visit * Reason Onset Date Comments SURGERICAL EVAL 03/07/[address] [place] [address] [facility]ON[facility] OFFICE. Encounter Details Date Type Department Care Team ([facility] Contact Info) Description 03/07/2023 Telephone [facility] Admitting [address] [place] [address] [place] [address] [place] [address] SURGERICAL EVAL (SPOKE [place] MORENO AT DR MCKEON'S OFFICE.) Social History Tobacco Use Types Packs/Day Years Used Date Smoking Tobacco: Former Cigarettes Q uit: 1984 Smokeless Tobacco: Never Alcohol Use Standard Drinks/Week Comments Yes 12 (1 standard drink = 0.6 oz pu re alcohol) Sex and Gender Information Value Date Recorded Sex Assigned at Not on file Legal Sex Male 3:03 PM CDT Gender Identity Not on file Sexual Orientation Not on file COVID-19 Exposure Response Date Recorded In the last 10 days, have yo u been in contact with someone who was confirmed or suspected to have Coronavirus/COVID-19? No / Unsure 02/19/2023 5:51 PM CDT documented as of this encounter Plan of Treatment Upcoming Encounters Date Type Department Care Team ([facility] Contact Info) Description 11/11/2025 11:00 AM CDT Office Visit [facility] [place] [address] [place] [address] Orlin Mckeon MD [address] [place] [address] documented as of this encounter Visit Diagnoses Not on filedocumented in this encounter Care Teams Radiosonde Operator Relationship Specialty Start Date End Date Buster Hurst MD 2 [facility] [address] [id number] PCP - General Internal Medicine 12/21/12 documented as of this encounter
--- OUTSIDE RECORDS SUMMARY | 2024-11-27 11:24 | XMS_ITS | Encounter Summary ---
Author Organization [facility] Address [address] [place] [address] Care Team Providers Care Manager Financial Reporting Name Role Phone Buster Hurst MD Primary Care Provider Kannan Man NP Unavailable [phone] Jan Williamson MD Unavailable [phone] Encounter Details Date Type Department Care Team (Late st Contact Info) Description 04/02/2020 Telephone [facility] [address] [place] [address] Osmin Galeana, RT Social History Tobacco Use Types Packs/Day Years Used Date Smoking Tobacco: Former Smokeless Tobacco: Never Alcohol Use Standard Drinks/Week Comments Yes 0 (1 standard drink = 0.6 oz pur e alcohol) Socially PHQ-2 Answer Date Recorded PHQ-2 Score 0 04/25/2019 Sex and Gender Information Value Date Recorded Sex Assigned at Not on file Legal Sex Male 8:34 AM BRASS MOLDER Gender Identity Male 10/31/2020 12:53 PM BRASS MOLDER Sexual Orientation Straight 10/31/2020 12 :53 PM BRASS MOLDER documented as of this encounter Plan of Treatment Not on file documented as of this encounter Visit Diagnoses Not on filedocumented in this encounter Additional Health Concerns Infection Onset Date Last Indicated Resolved Time COVID: Suspected 11/17/2021 11/17/2021 11/17/2021 12:10 PM CDT COVID: Suspected 08/17/2024 08/17/2024 08/17/2024 1:11 PM BRASS MOLDER documented as of this encounter Care Teams Manager Financial Reporting Relationship Specialty Start Date End Date Buster Hurst MD PCP - General 05/28/13 Kannan Man NP [address] [facility] [address] [place] [address] Nurse Practitioner Nurse Practitioner 04/18/20 3 Jan Williamson MD [address] [facility] [address] [facility] [address] [place] [address] Surgeon Orthopedic Surgery 06/17/23 documented as of this encounter
--- OUTSIDE RECORDS SUMMARY | 2024-11-27 11:24 | XMS_ITS | Continuity of Care Document ---
Author Name [facility] Address [address] [place] [address] Organization [facility] Care Team Providers Care Trauma Therapist Name Role Phone [facility] Unavailable Unavailable Problems Problem Status Onset Date Problem Type Date of Resolution Comments Source Depressive disorder (disorder) Active Condition Anterior displaced Type II dens fracture, initial encounter for closed fracture Active Diagnosis Hyperlipidemia, unspecified Diagnosis Unspecified kyphosis, cervical region Diagnosis Other cervical disc degeneration at C5-C6 level Diagnosis Major depressive disorder, single episode, unspecified Diagnosis Nicotine dependence, unspecified, uncomplicated Diagnosis Other fall from one level to another, initial encounter Diagnosis Other specified places as the place of occurrence of the external cause Diagnosis Spondylosis, unspecified Diagnosis Fall down embankment (hill), initial encounter Diagnosis Activity, walking, marching and hiking Diagnosis Other wilderness area as the place of occurrence of the external cause Diagnosis Other external cause status Diagnosis Laceration without foreign body of other part of head, initial encounter Diagnosis Other chronic pain Diagnosis Cervicalgia Diagnosis Other problems related to lifestyle Diagnosis Blood alcohol level of 80-99 mg/100 ml Diagnosis Posterior displaced Type II dens fracture, initial encounter for closed fracture Active Diagnosis Encounters Location Location Details Encounter Type Encounter Number Reason For Visit Attending Provider ADM Date DC Date Status Source [facility] [id number] 3mon with xray Nickolas Napoles [facility] [id number] 3mon with xray Alyce Desai [facility] Procedures Procedure Code Date Perfomer Comments Source B/L carpal tunnel Un [facility] Hammertoe repairs Un [facility] Hernia repair [facility] Left Rotator cuff repair [facility]
--- OUTSIDE RECORDS SUMMARY | 2024-11-27 11:24 | XMS_ITS | Encounter Summary ---
Author Organization [facility] Address [address] [place] [address] Phone Care Team Providers Care Locomotive Driver Name Role Phone Buster Hurst MD Primary Care Provider Kannan Man NP Unavailable [phone] Jan Williamson MD Unavailable [phone] Encounter Details Date Type Department Care Team (Late st Contact Info) Description 10/11/2017 Orders Only [facility] ProviderGino MD [facility], [facility] [place] [address] Social History Tobacco Use Types Packs/Day Years Used Date Smoking Tobacco: Former Smokeless Tobacco: Never Alcohol Use Standard Drinks/Week Comments Yes 0 (1 standard drink = 0.6 oz pur e alcohol) Sex and Gender Information Value Date Recorded Sex Assigned at Not on file Legal Sex Male 8:34 AM DATA WAREHOUSING ENGINEER Gender Identity Male 10/31/2020 12:53 PM DATA WAREHOUSING ENGINEER Sexual Orientation Straight 10/31/2020 12 :53 PM DATA WAREHOUSING ENGINEER documented as of this encounter Plan of Treatment Not on file documented as of this encounter Procedures Procedure Name Priority Date/Time Associated Diagnosis Comments DISCHARGE LABORATORY CUMULATIVE REPORT 10/11/2017 12:00 AM DATA WAREHOUSING ENGINEER documented in this encounter Results * DISCHARGE LABORATORY CUMULATIVE REPORT (10/11/2017 12:00 AM DATA WAREHOUSING ENGINEER) Narrative 10/11/2017 12:00 AM DATA WAREHOUSING ENGINEER Ordered by an unspecified provider. us Historical Provider LAB BLOOD ORDERABLES Caitlin l Result documented in this encounter Visit Diagnoses Not on filedocumented in this encounter Additional Health Concerns Infection Onset Date Last Indicated Resolved Time COVID: Suspected 11/17/2021 11/17/2021 11/17/2021 12:10 PM CDT COVID: Suspected 08/17/2024 08/17/2024 08/17/2024 1:11 PM DATA WAREHOUSING ENGINEER documented as of this encounter Care Teams Locomotive Driver Relationship Specialty Start Date End Date Buster Hurst MD PCP - General 05/28/13 Kannan Man NP [address] [facility] [address] [place] [address] Nurse Practitioner Nurse Practitioner 04/18/20 3 Jan Williamson MD [address] [facility] [address] [place] [address] Surgeon Orthopedic Surgery 06/17/23 documented as of this encounter
--- OUTSIDE RECORDS SUMMARY | 2024-11-27 11:24 | XMS_ITS ---
Care Plan - [facility] Created on: November 27, 2024 GEORGE AVILA : 1955 Sex: Male Author Organization [facility] Address [address] [place] [address] Phone Care Team Providers Care Assistant Plant Manager Name Role Phone JONO LAGUNA MD Unavailable [phone]
== END 2024-11-27 09:53 | disposition home or self-care (01) ==
LOC: ANHBWCAUD 09:56
PROVIDERS: Visit Provider Otolaryngology Otolaryngology/Facial Plastic Surgery
DX: H90.3 Sensorineural hearing loss, bilateral (principal)
CPT/HCPCS: 92557; 92567